=== PATIENT | male | born 1960 | race Caucasian/White ===

== ENCOUNTER 2022-02-24 04:38 | Outpatient (CLI) | payer BC, SELFPAY | END 2022-02-24 04:39 | disposition home or self-care (01) | PROVIDERS: Visit Provider Family Medicine | DX: S50.311A Abrasion of right elbow, initial encounter (principal); S80.212A Abrasion, left knee, initial encounter; S80.211A Abrasion, right knee, initial encounter; S70.311A Abrasion, right thigh, initial encounter; V18.0XXA Pedal cycle driver injured in noncollision transport accident in nontraffic accident, initial encounter; Y92.410 Unspecified street and highway as the place of occurrence of the external cause | CPT/HCPCS: A0998 ==

== ENCOUNTER 2022-02-24 04:57 | Emergency (ER) | payer BC, SELFPAY ==
[2022-02-24 05:08] VITALS: BP 200/150; PULSE 98; RESP 18; TEMP 36.6; O2SAT 99; BMI 29.5
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
[2022-02-24] MEDS: AMLODIPINE 5 MG TABLET PO (05:46)
[2022-02-24] MEDS: NAPROXEN 250 MG TABLET 500 MG PO (05:48)
[2022-02-24 06:03] VITALS: BP 200/150; BP 207/145; PULSE 89; PULSE 98; RESP 18; TEMP 36.6; O2SAT 99
== END 2022-02-24 06:11 | disposition home or self-care (01) ==
PROVIDERS: Emergency Provider Family Medicine
DX: S80.212A Abrasion, left knee, initial encounter (principal); S80.211A Abrasion, right knee, initial encounter; S50.311A Abrasion of right elbow, initial encounter; V19.3XXA Pedal cyclist (driver) (passenger) injured in unspecified nontraffic accident, initial encounter
CPT/HCPCS: 99282; 99283; 99284; A9270

== ENCOUNTER 2025-01-31 07:50 | Outpatient (CLI) | payer BC, SELFPAY ==
--- NOTE | 2025-01-31 08:49 | P.ANES_ITS ---
Anesthesia Charges Start Date/Time Anesthesia Start Date: 01/31/25 Anesthesia Start Time: 08:26 Stop Date/Time Anesthesia Stop Date: 01/31/25 Anesthesia Stop Time: 08:46 Coding CPT Codes CPT Codes: SONYA LWR INTST NDSC NOS - 91253 ([id number]) P2 - PATIENT W/MILD SYST DISEASE, QK - INCIDENT RESPONSE ENGINEER 2-4 CNCRNT ANES PROC, QX - MATERIALS DIRECTOR SVC W/ MD MED DIRECTION
--- NOTE | 2025-01-31 08:49 | W.ANESCHARGE ---
Anesthesia Charges Start Date/Time Anesthesia Start Date: 01/31/25 Anesthesia Start Time: 08:26 Stop Date/Time Anesthesia Stop Date: 01/31/25 Anesthesia Stop Time: 08:46 Coding CPT Codes CPT Codes: SONYA LWR INTST NDSC NOS - 31647 ([id number]) P2 - PATIENT W/MILD SYST DISEASE, QK - CLERK STENOGRAPHER 2-4 CNCRNT ANES PROC, QX - PLANT ELECTRICIAN SVC W/ MD MED DIRECTION
--- NOTE | 2025-01-31 09:07 | P.ANES_ITS ---
Anesthesia Charges Start Date/Time Anesthesia Start Date: 01/31/25 Anesthesia Start Time: 08:26 Stop Date/Time Anesthesia Stop Date: 01/31/25 Anesthesia Stop Time: 08:46 Coding CPT Codes CPT Codes: SONYA LWR INTST NDSC NOS - 62186 ([id number]) P2 - PATIENT W/MILD SYST DISEASE, QK - BRANCH GENERAL MANAGER 2-4 CNCRNT ANES PROC, QX - CATALYST IMPREGNATOR SVC W/ MD MED DIRECTION
--- NOTE | 2025-01-31 09:07 | W.ANESCHARGE ---
Anesthesia Charges Start Date/Time Anesthesia Start Date: 01/31/25 Anesthesia Start Time: 08:26 Stop Date/Time Anesthesia Stop Date: 01/31/25 Anesthesia Stop Time: 08:46 Coding CPT Codes CPT Codes: SONYA LWR INTST NDSC NOS - [id number] ([id number]) P2 - PATIENT W/MILD SYST DISEASE, QK - SIGNAL HELPER 2-4 CNCRNT ANES PROC, QX - PARKS AND RECREATION WORKER SVC W/ MD MED DIRECTION
== END 2025-01-31 07:51 | disposition home or self-care (01) ==
LOC: OP CLINIC 07:53
PROVIDERS: PCP Family Medicine; Visit Provider Internal Medicine Gastroenterology
DX: Z12.11 Encounter for screening for malignant neoplasm of colon (principal); D12.2 Benign neoplasm of ascending colon; D12.8 Benign neoplasm of rectum; K57.30 Diverticulosis of large intestine without perforation or abscess without bleeding
CPT/HCPCS: 00811; 00812; 45385; 88305; J2704